=== PATIENT | male | born 1985 | race Caucasian/White ===

== ENCOUNTER 2016-10-26 20:37 | Emergency (ER) | payer OTHER ==
[~2016-10-26] VITALS: Ht 190.5 cm; Wt 97.2 kg
[2016-10-26 20:42] VITALS: BP 139/79; PULSE 50; RESP 14; TEMP 98.3; O2SAT 99
[2016-10-26 21:00] VITALS: BP 168/88; PULSE 50; RESP 18; O2SAT 99
[2016-10-26] MEDS ORDERED: ONDANSETRON HCL 4 MG/2 ML VIAL IV PUSH ONE (21:30)
[2016-10-26] MEDS ORDERED: KETOROLAC TROMETHAMINE 30 MG/ML (IVP) VIAL IV PUSH ONE (21:30)
[2016-10-26] MEDS ORDERED: SODIUM CHLOR 0.9% 1000 ML INJ 1,000 ML IV ONE (21:30)
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
[2016-10-26] MEDS ORDERED: DIATRIZOATE MEGLUM/DIATRIZOATE SOD 9 ML CUP ONE (21:55)
[2016-10-26 22:00] VITALS: BP 148/84; PULSE 52; RESP 18; O2SAT 98
[2016-10-26 22:06] LABS: AUTOMATED NEUTROPHIL # 7.9 TH/MM3 (1.8-7.7); BASOPHIL # 0.1 TH/MM3 (0-0.2); EOSINOPHIL # 0.1 TH/MM3 (0-0.4); EOSINOPHIL % 0.6 % (0.0-4.0); LYMPH % 15.3 % (9.0-44.0); LYMPHOCYTE # 1.6 TH/MM3 (1.0-4.8); MEAN CELL VOLUME 89.3 FL (80.0-100.0); MEAN CORPUSCULAR HGB CONC 33.6 % (32.0-36.0); MONO % 6.8 % (0.0-8.0); NEUT % 76.3 % (16.0-70.0); PLATELET COUNT 196 TH/MM3 (150-450); RED BLOOD COUNT 4.94 MIL/MM3 (4.50-5.90); RED CELL DISTRIBUTION WIDTH 13.3 % (11.6-17.2); WHITE BLOOD COUNT 10.4 TH/MM3 (4.0-11.0)
[2016-10-26 22:07] LABS: BLOOD, URINE NEG (NEG); GLUCOSE,URINE NEG (NEG); KETONE, URINE NEG (NEG); NITRITE,URINE NEG (NEG)
[2016-10-26 22:08] LABS: HEMO FLAGS DIFF FINAL
[2016-10-26 22:22] LABS: URINE COLOR YELLOW (YELLW/STRAW)
[2016-10-26 22:23] LABS: CHLORIDE 106 MEQ/L (98-107); POTASSIUM 3.4 MEQ/L (3.5-5.1); SODIUM (NA) 144 MEQ/L (136-145)
[2016-10-26 22:24] LABS: MUCUS URINE FEW /lpf (OCC); SQUAMOUS EPITHELIAL CELL URINE 0-5 /hpf (0-5)
[2016-10-26 22:25] LABS: COMMENT (UR) CULT NOT INDICATED; CULTURE IF INDICATED CULT NOT INDICATED
[2016-10-26 22:27] LABS: ANION GAP 7 MEQ/L (5-15); BICARBONATE 31.4 MEQ/L (21.0-32.0); BLOOD UREA NITROGEN 6 MG/DL (7-18)
[2016-10-26 22:30] LABS: ALT (GPT) 53 U/L (12-78); AST (GOT) 23 U/L (15-37); GLOMERULAR FILTRATION RATE 96 ML/MIN (>89)
[2016-10-26] MEDS ORDERED: POTASSIUM CHLORIDE 20 MEQ CONTROLLED RELEASE TAB PO ONE (22:30)
[2016-10-26 22:32] LABS: TOTAL BILIRUBIN ADULT 0.5 MG/DL (0.2-1.0)
[2016-10-26 22:33] LABS: ALKALINE PHOSPHATASE 47 U/L (45-117)
[2016-10-26] MEDS ORDERED: IOHEXOL 350 MG/ML 10 ML VIAL (for RAD DIAG) IV ONE (23:31)
--- NOTE | 2016-10-26 23:47 | RADHPO ---
EXAM DATE/TIME: 10/26/2016 23:12 [facility] COMPARISON: No previous studies available for comparison. INDICATIONS : Bilateral lower quadrant pain. IV CONTRAST: 100 cc Omnipaque 350 (iohexol) IV ORAL CONTRAST: Prescribed oral contrast ingested. RADIATION DOSE: 17.34 CTDIvol (mGy) MEDICAL HISTORY : None SURGICAL HISTORY : Appendectomy. ENCOUNTER: Initial ACUITY: 1 day PAIN SCALE: 7/10 LOCATION: Bilateral lower quadrant TECHNIQUE: Volumetric scanning of the abdomen and pelvis was performed. Using automated exposure control and ad justment of the mA and/or kV according to patient size, radiation dose was kept as low as reasonably achievable to obtain optimal diagnostic quality images. FINDINGS: LOWER LUNGS: The visualized lower lungs are clear. LIVER: Homogeneous density without lesion. There is no dilation of the biliary tree. No calcified gallston es. SPLEEN: Normal size without lesion. PANCREAS: Within normal limits. KIDNEYS: Normal in size and shape. There is no mass, stone or hydronephrosis except for 2 small stones midpol e right kidney. ADRENAL GLANDS: Within normal limits. VASCULAR: There is no aortic aneurysm. BOWEL/MESENTERY: The stomach, small bowel, and colon demonstrate no acute abnormality. There is no free intraperitone al air or fluid. The colon is decompressed ABDOMINAL WALL: Within normal limits. RETROPERITONEUM: There is no lymphadenopathy. BLADDER: No wall thickening or mass. REPRODUCTIVE: Within normal limits. INGUINAL: There is no lymphadenopathy or hernia. MUSCULOSKELETAL: Within normal limits for patient age. CONCLUSION: The colon is decompressed. Small bowel is unremarkable. 2 stones in the right kidney otherwise unrema rkable abdomen and pelvis CT scan Sridhar Hearn MD on October 26, 2016 at 23:44 Board Certified Radiologist. This report was verified electronically.
[2016-10-26] MEDS ORDERED: HYDR-3535 PO (23:55)
[2016-10-27 00:15] VITALS: BP 148/70; PULSE 50; RESP 18; O2SAT 98
== END 2016-10-27 00:27 | disposition home or self-care (01) ==
LOC: PHED 20:37
DX: R10.9 Unspecified abdominal pain (principal); R51 Headache; Z87.39 Personal history of other diseases of the musculoskeletal system and connective tissue; Z87.891 Personal history of nicotine dependence
CPT/HCPCS: 74177; 80053; 81001; 85025; 96361; 96374; 96375; 99285; J1885; J2405; J7030; Q9963; Q9967

== ENCOUNTER 2016-12-18 00:40 | Emergency (ER) | payer OTHER ==
[~2016-12-18] VITALS: Ht 190.5 cm; Wt 95.5 kg
[~2016-12-18 00:40] MED LIST: HYDR-3535 PO
[2016-12-18 00:47] VITALS: BP 134/72; PULSE 77; RESP 14; TEMP 97.4; O2SAT 100
[2016-12-18 01:02] VITALS: BP 122/54; PULSE 78; RESP 16; O2SAT 98
[2016-12-18 01:56] VITALS: BP 109/65; PULSE 73; O2SAT 96
[2016-12-18] MEDS ORDERED: SODIUM CHLOR 0.9% 1000 ML INJ 1,000 ML IV SCH (02:30)
[2016-12-18 02:41] LABS: BLOOD, URINE NEG (NEG); GLUCOSE,URINE NEG (NEG); KETONE, URINE TRACE mg/dL (NEG); NITRITE,URINE NEG (NEG)
[2016-12-18 02:44] LABS: AUTOMATED NEUTROPHIL # 3.3 TH/MM3 (1.8-7.7); BASOPHIL # 0.1 TH/MM3 (0-0.2); BASOPHIL % 1.2 % (0.0-2.0); EOSINOPHIL # 0.1 TH/MM3 (0-0.4); EOSINOPHIL % 2.3 % (0.0-4.0); HEMATOCRIT 39.6 % (39.0-51.0); HEMO FLAGS DIFF FINAL; LYMPH % 37.7 % (9.0-44.0); LYMPHOCYTE # 2.4 TH/MM3 (1.0-4.8); MEAN CELL VOLUME 88.9 FL (80.0-100.0); MEAN CORPUSCULAR HEMOGLOBIN 30.5 PG (27.0-34.0); MEAN CORPUSCULAR HGB CONC 34.3 % (32.0-36.0); MONO % 8.1 % (0.0-8.0); NEUT % 50.7 % (16.0-70.0); PLATELET COUNT 173 TH/MM3 (150-450); RED BLOOD COUNT 4.45 MIL/MM3 (4.50-5.90); RED CELL DISTRIBUTION WIDTH 12.6 % (11.6-17.2); WHITE BLOOD COUNT 6.4 TH/MM3 (4.0-11.0)
[2016-12-18 02:48] LABS: URINE COLOR AMBER (YELLW/STRAW)
[2016-12-18 02:49] LABS: COMMENT (UR) CULT NOT INDICATED; CULTURE IF INDICATED CULT NOT INDICATED; RBC, URINE 0-2 /hpf (0-3); SQUAMOUS EPITHELIAL CELL URINE 0-5 /hpf (0-5); WBC, URINE 0-2 /hpf (0-5)
[2016-12-18 02:49] LABS: CHLORIDE 107 MEQ/L (98-107); POTASSIUM 3.4 MEQ/L (3.5-5.1); SODIUM (NA) 140 MEQ/L (136-145)
[2016-12-18 02:50] LABS: BARBITURATES, URINE NEG (NEG)
--- NOTE | 2016-12-18 02:50 | RADRPT ---
EXAM DATE/TIME: 12/18/2016 02:36 [facility] COMPARISON: No previous studies available for comparison. INDICATIONS : Syncopal episode today MEDICAL HISTORY : None. SURGICAL HISTORY : None. ENCOUNTER: Initial ACUITY: 1 day PAIN SCORE: 0/10 LOCATION: Bilateral chest FINDINGS: Portable AP view of the chest demonstrates a normal-sized cardiac silhouette. No effusion, consolidat ion, or pneumothorax is visualized. The bones and soft tissues demonstrate no acute abnormality. CONCLUSION: No acute cardiopulmonary abnormality is identified. Adonay Peña MD on December 18, 2016 at 2:48 Board Certified Radiologist. This report was verified electronically.
[2016-12-18 02:51] LABS: AMPHETAMINE, URINE NEG (NEG); COCAINE, URINE NEG (NEG)
--- NOTE | 2016-12-18 02:52 | RADRPT ---
EXAM DATE/TIME: 12/18/2016 02:30 [facility] COMPARISON: No previous studies available for comparison. INDICATIONS : Syncopal episode, possibly hit posterior head. RADIATION DOSE: 64.86 CTDIvol (mGy) MEDICAL HISTORY : None SURGICAL HISTORY : None. ENCOUNTER: Initial ACUITY: 1 day PAIN SCALE: 4/10 LOCATION: cranial TECHNIQUE: Multiple contiguous axial images were obtained of the head. Using automated exposure control and adj ustment of the mA and/or kV according to patient size, radiation dose was kept as low as reasonably a chievable to obtain optimal diagnostic quality images. DICOM format image data is available electro nically for review and comparison. FINDINGS: CEREBRUM: The ventricles are normal. No evidence of midline shift, mass lesion, hemorrhage or acute infarction . No extra-axial fluid collections are seen. POSTERIOR FOSSA: The cerebellum and brainstem demonstrate no abnormality. The 4th ventricle is midline. The cerebell opontine angle is unremarkable. EXTRACRANIAL: Visualized sinuses are clear. SKULL: The calvaria is intact. No evidence of skull fracture. CONCLUSION: Negative noncontrast head CT. No acute finding is identified. Adonay Peña MD on December 18, 2016 at 2:49 Board Certified Radiologist. This report was verified electronically.
[2016-12-18 02:53] LABS: ANION GAP 7 MEQ/L (5-15); APTT (PATIENT) 21.7 SEC (24.3-30.1); BICARBONATE 25.7 MEQ/L (21.0-32.0); BLOOD UREA NITROGEN 9 MG/DL (7-18)
[2016-12-18 02:56] LABS: ALT (GPT) 40 U/L (12-78); AST (GOT) 22 U/L (15-37); GLOMERULAR FILTRATION RATE 101 ML/MIN (>89)
[2016-12-18 02:57] LABS: TOTAL BILIRUBIN ADULT 0.4 MG/DL (0.2-1.0)
[2016-12-18 02:58] LABS: ALKALINE PHOSPHATASE 43 U/L (45-117); CREATINE KINASE 139 U/L (39-308)
--- NOTE | 2016-12-18 03:06 | PD ---
HPI Chief Complaint: Syncope/Near-Syncope Time Seen by Provider: 02:15 Travel History International Travel<30 days: No Contact w/Intl Traveler<30days: No Traveled to known affect area: No History of Present Illness HPI 31-year-old male complains of syncope. Patient states that he went to the bathroom tonight, started feeling nausea, stood up and passed out completely. Patient's states that she heard the noise in the bathroom after patient fell and came to the bathroom and patient was awake by then. Patient was drowsy and beginning however came back completely normal after a short time. Patient tried to sit back up onto the toilet and then passed out again. Patient 's states that he had extremity shaking motions and stiffening of the extremity and then went limp. Patient was drowsy subsequently and then back to normal again. Patient's states that the episode lasted a few seconds. Patient denies any headache except pain in the back the head when he fell and hit the back the head. Patient states that he had some blurred vision earlier but not now. Patient denies any neck pain. Patient denies any chest pain or shortness of breath. Patient denies abdominal pain. Patient denies any focal weakness or numbness of extremity. Patient denies any history of head injury. Patient denies any history of seizure. Patient denies any history of illicit drug abuse except smoking pot once in a while. Patient states he drinks alcohol once in a while. PFS Past Medical History Medical History: Denies Significant Hx Diminished Hearing: No Immunizations Current: Yes Tetanus Vaccination: > 5 Years Influenza Vaccination: No Past Surgical History Appendectomy: Yes Eye Surgery: Yes (PRK) Social History Alcohol Use: Yes (RARE) Tobacco Use: No (QUIT 2013) Substance Use: Yes (OCC MARIJUANA) Allergies-Medications (Allergen,Severity, Reaction): Coded Allergies: No Known Allergies (Unverified , 12/18/16) Reported Meds & Prescriptions Reported Meds & Active Scripts Active No Active Prescriptions or Reported Medications Review of Systems General / Constitutional: No: Fever Eyes: No: Visual changes HENT: No: Headaches Cardiovascular: No: Chest Pain or Discomfort Respiratory: No: Shortness of Breath Gastrointestinal: No: Abdominal Pain Genitourinary: No: Dysuria Musculoskeletal: No: Pain Skin: No Rash Neurologic: Positive: Syncope, No: Weakness Psychiatric: No: Depression Endocrine: No: Polydipsia Hematologic/Lymphatic: No: Easy Bruising Physical Exam Narrative GENERAL: Well-nourished, well-developed patient. SKIN: Focused skin assessment warm/dry. HEAD: Normocephalic. EYES: No scleral icterus. No injection or drainage. Right pupil slightly larger than left pupil. Both pupils reactive. NECK: Supple, trachea midline. No JVD or lymphadenopathy. CARDIOVASCULAR: Regular rate and rhythm without murmurs, gallops, or rubs. RESPIRATORY: Breath sounds equal bilaterally. No accessory muscle use. GASTROINTESTINAL: Abdomen soft, non-tender, nondistended. MUSCULOSKELETAL: No cyanosis, or edema. BACK: Nontender without obvious deformity. No CVA tenderness. Neurology exam: Patient awake and alert oriented 3. No obvious focal neurological deficit. Data Data Last Documented VS Vital Signs Date Time Temp Pulse Resp B/P Pulse Ox O2 Delivery O2 Flow Rate FiO2 12/18/16 01:56 73 109/65 96 Room Air 12/18/16 01:02 16 12/18/16 00:47 97.4 Orders Electrocardiogram (12/18/16 02:23) Complete Blood Count With Diff (12/18/16 02:23) Comprehensive Metabolic Panel (12/18/16 02:23) Creatine Kinase (Cpk) (12/18/16 02:23) Troponin I (12/18/16 02:23) Prothrombin Time / Inr (Pt) (12/18/16 02:23) Act Partial Throm Time (Ptt) (12/18/16 02:23) Urinalysis - C+S If Indicated (12/18/16 02:23) Magnesium (Mg) (12/18/16 02:23) Thyroid Stimulating Hormone (12/18/16 02:23) Phosphorus (Po4) (12/18/16 02:23) Chest, Single Ap (12/18/16 02:23) Ct Brain W/O Iv Contrast(Rout) (12/18/16 02:23) Iv Access Insert/Monitor (12/18/16 02:23) Ecg Monitoring (12/18/16 02:23) Oximetry (12/18/16 02:23) Drug Screen, Random Urine (12/18/16 02:23) Sodium Chlor 0.9% 1000 Ml Inj (Ns 1000 M (12/18/16 02:30) Labs Laboratory Tests Test 12/18/16 12/18/16 02:14 02:35 Urine Color BEATRIZ Urine Turbidity CLEAR Urine pH 6.0 Urine Specific [place] 1.034 Urine Protein 30 mg/dL Urine Glucose (UA) NEG mg/dL Urine Ketones TRACE mg/dL Urine Occult Blood NEG Urine Nitrite NEG Urine Bilirubin NEG Urine Leukocyte Esterase NEG Urine RBC 0-2 /hpf Urine WBC 0-2 /hpf Urine Squamous Epithelial 0-5 /hpf Cells Urine Bacteria NONE /hpf Microscopic Urinalysis Comment CULT NOT INDICATED Urine Opiates Screen NEG Urine Barbiturates Screen NEG Urine Amphetamines Screen NEG Urine Benzodiazepines Screen NEG Urine Cocaine Screen NEG Urine Cannabinoids Screen POS White Blood Count 6.4 TH/MM3 Red Blood Count 4.45 MIL/MM3 Hemoglobin 13.6 GM/DL Hematocrit 39.6 % Mean Corpuscular Volume 88.9 FL Mean Corpuscular Hemoglobin 30.5 PG Mean Corpuscular Hemoglobin 34.3 % Concent Red Cell Distribution Width 12.6 % Platelet Count 173 TH/MM3 Mean Platelet Volume 8.8 FL Neutrophils (%) (Auto) 50.7 % Lymphocytes (%) (Auto) 37.7 % Monocytes (%) (Auto) 8.1 % Eosinophils (%) (Auto) 2.3 % Basophils (%) (Auto) 1.2 % Neutrophils # (Auto) 3.3 TH/MM3 Lymphocytes # (Auto) 2.4 TH/MM3 Monocytes # (Auto) 0.5 TH/MM3 Eosinophils # (Auto) 0.1 TH/MM3 Basophils # (Auto) 0.1 TH/MM3 CBC Comment DIFF FINAL Differential Comment Prothrombin Time 11.0 SEC Prothromb Time International 1.0 RATIO Ratio Activated Partial 21.7 SEC Thromboplast Time Sodium Level 140 MEQ/L Potassium Level 3.4 MEQ/L Chloride Level 107 MEQ/L Carbon Dioxide Level 25.7 MEQ/L Anion Gap 7 MEQ/L Blood Urea Nitrogen 9 MG/DL Creatinine 0.88 MG/DL Estimat Glomerular Filtration 101 ML/MIN Rate Random Glucose 126 MG/DL Calcium Level 8.9 MG/DL Phosphorus Level 2.5 MG/DL Magnesium Level 2.0 MG/DL Total Bilirubin 0.4 MG/DL Aspartate Amino Transf 22 U/L (AST/SGOT) Alanine Aminotransferase 40 U/L (ALT/SGPT) Alkaline Phosphatase 43 U/L Total Creatine Kinase 139 U/L Troponin I LESS THAN 0.02 NG/ML Total Protein 6.9 GM/DL Albumin 3.9 GM/DL Thyroid Stimulating Hormone 1.790 uIU/ML 3rd [facility] Medical Decision Making Medical Screen Exam Complete: Yes Emergency Medical Condition: Yes Interpretation(s) Last Impressions Head CT 12/18/16222 Signed Impressions: Service Date/Time: November 02:30 - CONCLUSION: Negative noncontrast head CT. No acute finding is identified. Adonay Peña MD Chest X-Ray 12/18/16222 Signed Impressions: Service Date/Time: November 02:36 - CONCLUSION: No acute cardiopulmonary abnormality is identified. Adonay Peña MD 3:12 AM. CBC within normal limit. CMP within normal limit. Potassium 3.4. Cardiac enzymes are normal. Urine drug screen positive for cannabis. Differential Diagnosis Differential diagnosis including vasovagal reaction, arrhythmia, TIA, CVA, seizure. Narrative Course 31-year-old male with 2 episodes of syncope, possible seizure activity. Patient was advised to be admitted for further workup. Patient refuses admission. Patient wants to follow-up with his personal physician. Diagnosis Primary Impression: Syncope and collapse Additional Impression: Closed head injury Patient Instructions: General Instructions Additional Instructions: Head trauma instructions given. Follow-up with personal physician and neurologist. Return as needed. Med/Other Pt SpecificInfo: No Meds Exist/No RX given Scripts No Active Prescriptions or Reported Meds Disposition: 01 DISCHARGE HOME Condition: Stable Juan Carlos Carlisle MD Dec 18, 2016 03:06
[2016-12-18 03:51] VITALS: BP 110/70
--- NOTE | 2016-12-18 12:45 | EKG ---
Date Performed: 12/18/2016 Time Performed: 02:33:29 PTAGE: 31 years EKG: Sinus rhythm MODERATE INTRAVENTRICULAR CONDUCTION DELAY BORDERLINE ECG NO PREVIOUS TRACING DOCTOR: Cristian Romero Interpretating Date/Time 12/18/2016 12:42:48
== END 2016-12-18 03:54 | disposition home or self-care (01) ==
LOC: PHED 00:40
DX: R55 Syncope and collapse (principal); R11.0 Nausea; H53.8 Other visual disturbances; F12.90 Cannabis use, unspecified, uncomplicated; S09.90XA Unspecified injury of head, initial encounter; W19.XXXA Unspecified fall, initial encounter; Y92.002 Bathroom of unspecified non-institutional (private) residence as the place of occurrence of the external cause; Z87.891 Personal history of nicotine dependence
CPT/HCPCS: 70450; 71010; 80053; 80307; 81001; 82550; 83735; 84100; 84443; 84484; 85025; 85610; 85730; 93005; 96360; 99285; J7030